=== PATIENT | female | born 1945 | race Caucasian/White ===

== ENCOUNTER 2016-02-20 03:40 | Emergency (ER) | payer MEDICARE, MEDICAID ==
[2016-02-20] MEDS ORDERED: SODIUM CHLORIDE 0.9% 3 ML FLUSH FLUSH PRN (03:42)
--- NOTE | 2016-02-20 03:47 | EDPRACDOC ---
- General Information Information Source: Patient - History of Present Illness Pain Location: Reports: Diffuse Pain Context: Reports: Spontaneous Pain Severity: Moderate Pain Quality: Reports: Aching Female Associated Signs & Symptoms: Reports: Nausea, Vomiting. Denies: Diarrhea , Fever Oral Intake: Normal <Jarrod Malik - Last Filed: 02/20/16 05:04> <Russell Beaulieu - Last Filed: 02/20/16 07:33> - General Information Stated Complaint: ABD PAIN Time Seen by Provider: 02/20/16 03:40 Home Medications: Home Medications Ondansetron [Zofran Odt] 4 mg PO Q6H PRN #10 tab.rapdis 02/20/16 Oxycodone HCl [Roxicodone] 5 mg PO Q4 PRN #10 tablet 02/20/16 Allergies/Adverse Reactions: Allergies Allergy/AdvReac Type Severity Reaction Status Date / Time ciprofloxacin Allergy Intermediate Hives* Verified 02/20/16 03:51 Penicillins Allergy Intermediate Hives* Verified 02/20/16 03:52 - History of Present Illness HPI: PT PRESENTS WITH DIFFUSE ABDOMINAL PAIN THAT BEGAN YESTERDAY. THERE IS ASSOCIATED NAUSEA AND VOMITING. (Jarrod Malik) ED Past Medical History - History Reviewed Yes Nurses notes reviewed and agree except as marked - Social Medical History Lives In: Home <Jarrod Malik - Last Filed: 02/20/16 05:04> EDM Review of Systems - Review of Systems ROS Negative Except as Marked: Yes All systems reviewed and were negative except as marked Constitutional: negative: Fever Respiratory: negative: Shortness of Breath Cardiovascular: negative: Chest Pain Gastrointestinal: Nausea, Pain, Vomiting. negative: Diarrhea Genitourinary: negative: Dysuria <Jarrod Malik - Last Filed: 02/20/16 05:04> - Physical Exam Constitutional: Alert Oriented to: Time, Person, Place - HEENT Head: negative: Deformity, Laceration Eye Exam: negative: Conjunctival Injection, Pale Conjunctiva Neck: negative: Limited ROM - Respiratory/Cardiovascular Respiratory: Normal - CTA. negative: Accessory Muscle Use, Diminished, Tachypnea Cardiovascular: negative: Bradycardia, Irregular - GI Auscultation: Increased Palpation: Tense Tenderness: Diffuse, Moderate, Guarding. negative: Rebound, Rigidity - Musculoskeletal Extremities: Radial Pulse (PALPABLE) - Integumentary Skin: Warm, Dry. negative: Rash - Neurologic Memory Impaired: Normal Motor Function: Normal Mood Description: Anxious, Appropriate Thought: Coherent Perception: Normal <Jarrod Malik - Last Filed: 02/20/16 05:04> - Results 02/20/16 04:00 02/20/16 04:00 - EKG EKG #1 EKG Time: 03:45 -: Yes EKG interpreted by me Rate: bpm: 83 [place]: Normal Rhythm: NSR Block: None Hypertrophy: None ST: Normal <Jarrod Malik - Last Filed: 02/20/16 05:04> - Results 02/20/16 04:00 02/20/16 04:00 <Russell Beaulieu - Last Filed: 02/20/16 07:33> - Results WBC 6.1 xk/uL (3.8-10.8) 02/20/16 04:00 RBC 3.00 xM/uL (4.20-5.40) L 02/20/16 04:00 Hgb 8.7 g/dL (12.0-16.0) L 02/20/16 04:00 Hct 26.5 % (36-47) L 02/20/16 04:00 MCV 89 fL (81-99) 02/20/16 04:00 MCH 29.1 pg (27-32) 02/20/16 04:00 MCHC 32.8 g/dl (33-36) L 02/20/16 04:00 RDW 14.2 % (11.5-14.5) 02/20/16 04:00 Plt Count 98 xk/uL (130-400) L 02/20/16 04:00 MPV 10.5 fL (7.4-10.4) H 02/20/16 04:00 Neut % (Auto) 75.2 % (45-76) 02/20/16 04:00 Lymph % (Auto) 15.0 % (17-44) L 02/20/16 04:00 [place] % (Auto) 7.7 % (3-10) 02/20/16 04:00 Eos % (Auto) 1.6 % (0-5) 02/20/16 04:00 Baso % (Auto) 0.5 % (0-2) 02/20/16 04:00 Absolute Neuts (auto) 4.58 xk/uL (1.7-8.2) 02/20/16 04:00 Absolute Lymphs (auto) 0.92 xk/uL (0.65-4.75) 02/20/16 04:00 PT 11.5 SEC (9.2-11.2) H 02/20/16 04:00 INR 1.1 02/20/16 04:00 APTT 24.7 SEC (22-35) 02/20/16 04:00 Sodium 133 mEq/L (137-146) L 02/20/16 04:00 Potassium 4.9 mEq/L (3.5-5.1) 02/20/16 04:00 Chloride 93 mEq/L (98-107) L 02/20/16 04:00 Carbon Dioxide 29 mMOL/L (22-33) 02/20/16 04:00 Anion Gap 16 mEq/L (8-16) 02/20/16 04:00 BUN 29 MG/DL (7-17) H 02/20/16 04:00 Creatinine 0.90 MG/DL (0.52-1.04) 02/20/16 04:00 Estimated GFR (MDRD) > 60 mL/min (>=60) 02/20/16 04:00 Glucose 277 MG/DL (70-99) H 02/20/16 04:00 Calculated Osmolality 272 MOs/Kg (270-290) 02/20/16 04:00 Lactic Acid 1.4 mEq/L (0.7-2.1) 02/20/16 05:50 Calcium 9.1 MG/DL (8.4-10.2) 02/20/16 04:00 Corrected Calcium 9.3 MG/DL (8.4-10.2) 02/20/16 04:00 Total Bilirubin 0.5 MG/DL (0.2-1.3) 02/20/16 04:00 AST 32 IU/L (14-36) 02/20/16 04:00 ALT 43 IU/L (9-52) 02/20/16 04:00 Alkaline Phosphatase 124 IU/L (55-165) 02/20/16 04:00 Troponin I < 0.01 ng/mL (<.04) 02/20/16 04:00 Total Protein 6.6 G/DL (6.3-8.2) 02/20/16 04:00 Albumin 3.8 G/DL (3.5-5.0) 02/20/16 04:00 Lipase 220 U/L (23-300) 02/20/16 04:00 Urine Color Yellow 02/20/16 06:00 Urine Clarity Clear 02/20/16 06:00 Urine pH 7.0 (5.0-8.0) 02/20/16 06:00 Ur Specific [place] 1.005 (1.003-1.035) 02/20/16 06:00 Urine Protein Neg (NEG/TRACE) 02/20/16 06:00 Urine Glucose (UA) 3+ (NEGATIVE) H 02/20/16 06:00 Urine Ketones Neg (NEGATIVE) 02/20/16 06:00 Urine Occult Blood Neg (NEG/TRACE) 02/20/16 06:00 Urine Nitrite Neg (NEGATIVE) 02/20/16 06:00 Urine Bilirubin Neg (NEGATIVE) 02/20/16 06:00 Urine Urobilinogen <2.0 MG/DL (0-1) 02/20/16 06:00 Ur Leukocyte Esterase Neg (NEGATIVE) 02/20/16 06:00 Urine RBC 0-2 (0-5) 02/20/16 06:00 Urine WBC 0-2 (0-5) 02/20/16 06:00 Ur Epithelial Cells Occ 02/20/16 06:00 Urine Bacteria Few (NEG/FEW) 02/20/16 06:00 Lab Results 02/20/16 02/20/16 02/20/16 06:00 05:50 04:00 WBC RBC Hgb Hct MCV MCH MCHC RDW Plt Count MPV Neut % (Auto) Lymph % (Auto) [place] % (Auto) Eos % (Auto) Baso % (Auto) Absolute Neuts (auto) Absolute Lymphs (auto) PT 11.5 H INR 1.1 APTT 24.7 Sodium Potassium Chloride Carbon Dioxide Anion Gap BUN Creatinine Estimated GFR (MDRD) Glucose Calculated Osmolality Lactic Acid 1.4 Calcium Corrected Calcium Total Bilirubin AST ALT Alkaline Phosphatase Troponin I Total Protein Albumin Lipase Urine Color Yellow Urine Clarity Clear Urine pH 7.0 Ur Specific [place] 1.005 Urine Protein Neg Urine Glucose (UA) 3+ H Urine Ketones Neg Urine Occult Blood Neg Urine Nitrite Neg Urine Bilirubin Neg Urine Urobilinogen <2.0 Ur Leukocyte Esterase Neg Urine RBC 0-2 Urine WBC 0-2 Ur Epithelial Cells Occ Urine Bacteria Few 02/20/16 02/20/16 02/20/16 04:00 04:00 04:00 WBC 6.1 RBC 3.00 L Hgb 8.7 L Hct 26.5 L MCV 89 MCH 29.1 MCHC 32.8 L RDW 14.2 Plt Count 98 L MPV 10.5 H Neut % (Auto) 75.2 Lymph % (Auto) 15.0 L [place] % (Auto) 7.7 Eos % (Auto) 1.6 Baso % (Auto) 0.5 Absolute Neuts (auto) 4.58 Absolute Lymphs (auto) 0.92 PT INR APTT Sodium 133 L Potassium 4.9 Chloride 93 L Carbon Dioxide 29 Anion Gap 16 BUN 29 H Creatinine 0.90 Estimated GFR (MDRD) > 60 Glucose 277 H Calculated Osmolality 272 Lactic Acid Calcium 9.1 Corrected Calcium 9.3 Total Bilirubin 0.5 AST 32 ALT 43 Alkaline Phosphatase 124 Troponin I < 0.01 Total Protein 6.6 Albumin 3.8 Lipase 220 Urine Color Urine Clarity Urine pH Ur Specific [place] Urine Protein Urine Glucose (UA) Urine Ketones Urine Occult Blood Urine Nitrite Urine Bilirubin Urine Urobilinogen Ur Leukocyte Esterase Urine RBC Urine WBC Ur Epithelial Cells Urine Bacteria (Russell Beaulieu) <Jarrod Malik - Last Filed: 02/20/16 05:04> Decision Time to Discharge: 07:32 - Departure Disposition: Home Education/Counseling Given To: Patient Education/Counseling Given Regarding: Diagnosis, Prognosis, Follow Up <Russell Beaulieu - Last Filed: 02/20/16 07:33> - Departure Condition: Stable Final Diagnosis: Abdominal pain, Celiac artery atherosclerosis, Splenomegaly Coronary artery disease Qualifiers: Coronary Disease-Associated Artery/Lesion type: [place] artery [place] vs. transplanted heart: [place] heart Associated angina: without angina Qualified Code(s): I25.10 - Atherosclerotic heart disease of [place] coronary artery without angina pectoris Hepatic cirrhosis Qualifiers: Hepatic cirrhosis type: unspecified hepatic cirrhosis Ascites presence: without ascites Qualified Code(s): K74.60 - Unspecified cirrhosis of liver Instructions: Abdominal Pain in Women Referrals: None,No Provider [Primary Care Provider] - 1-2 days Prescriptions: Ondansetron [Zofran Odt] 4 mg PO Q6H PRN #10 tab.rapdis PRN Reason: Nausea/Vomiting Oxycodone HCl [Roxicodone] 5 mg PO Q4 PRN #10 tablet PRN Reason: Pain
[2016-02-20 03:48] VITALS: BMI 29.0
[2016-02-20] MEDS ORDERED: Pharmacy Review for Metformin - IV Contrast Given SCH (04:00)
[2016-02-20 04:08] VITALS: TEMP 97.4
[2016-02-20] MEDS ORDERED: MORPHINE 4 MG/ML INJECTION IV ONE (04:09)
[2016-02-20 04:10] LABS: AUTOMATED BASOPHIL 0.5 % (0-2); AUTOMATED EOSINOPHIL 1.6 % (0-5); AUTOMATED MONOCYTE 7.7 % (3-10); AUTOMATED NEUTROPHIL 75.2 % (45-76); MPV 10.5 fL (7.4-10.4)
[2016-02-20] MEDS ORDERED: MORPHINE 2 MG/ML INJECTION ONE (04:11)
[2016-02-20 04:19] LABS: BLOOD UREA NITROGEN 29 MG/DL (7-17); CALC CORRECTED 9.3 MG/DL (8.4-10.2); CALCIUM 9.1 MG/DL (8.4-10.2); CALCULATED OSMOLALITY 272 MOs/Kg (270-290); CHLORIDE 93 mEq/L (98-107); GLUCOSE 277 MG/DL (70-99); SODIUM LEVEL 133 mEq/L (137-146); TOTAL PROTEIN 6.6 G/DL (6.3-8.2)
--- NOTE | 2016-02-20 05:29 | DIRPT ---
CLINICAL DATA: Acute onset of generalized abdominal pain, nausea and vomiting. Initial encounter. EXAM: CT ABDOMEN AND PELVIS WITH CONTRAST TECHNIQUE: Multidetector CT imaging of the abdomen and pelvis was performed using the standard protocol following bolus administration of intravenous contrast. CONTRAST: 100 mL of Isovue 370 IV contrast COMPARISON: None. FINDINGS: The visualized lung bases are clear. Diffuse coronary artery calcifications are seen. Calcification is noted at the mitral and aortic valves. There is a nodular contour to the liver, compatible with hepatic cirrhosis. The spleen is enlarged, measuring 15.1 cm in length. The patient is status post cholecystectomy. The pancreas and adrenal glands are unremarkable. Mild gastric varices are suggested. The kidneys are unremarkable in appearance. There is no evidence of hydronephrosis. No renal or ureteral stones are seen. No perinephric stranding is appreciated. No free fluid is identified. The small bowel is unremarkable in appearance. The stomach is within normal limits. No acute vascular abnormalities are seen. Diffuse calcification is noted along the abdominal aorta and its branches. There is a common trunk to the celiac axis and superior mesenteric artery, which demonstrates diffuse calcification. The patient is status post appendectomy. Mild diverticulosis is noted along the proximal sigmoid colon, without evidence of diverticulitis. The bladder is moderately distended and grossly unremarkable. The uterus is grossly unremarkable in appearance. A 3.5 cm right adnexal cystic focus is noted. The ovaries are otherwise unremarkable. No inguinal lymphadenopathy is seen. No acute osseous abnormalities are identified. There is chronic compression deformity involving vertebral body T12. IMPRESSION: 1. No definite acute abnormality seen to explain the patient's symptoms. 2. Common trunk to the celiac axis and superior mesenteric artery, which demonstrates diffuse calcification. Would correlate for any evidence of intermittent mesenteric ischemia, and consider further evaluation as deemed clinically appropriate. No CT findings to suggest bowel ischemia at this time. 3. Findings of hepatic cirrhosis. 4. Splenomegaly noted. 5. Mild gastric varices suggested. 6. Diffuse coronary artery calcifications seen. Calcification at the mitral and aortic valves. 7. Diffuse calcification along the abdominal aorta and its branches. 8. Mild diverticulosis along the proximal sigmoid colon, without evidence of diverticulitis. 9. 3.5 cm right adnexal cystic focus is likely physiologic, though pelvic ultrasound could be considered for further evaluation if deemed clinically appropriate. 10. Chronic compression deformity at vertebral body T12. Electronically Signed By: Darius Fischer M.D. On: 02/20/2016 05:27
[2016-02-20] MEDS ORDERED: SODIUM CHLORIDE 0.9% 3 ML FLUSH FLUSH SCH (06:00)
[2016-02-20] MEDS ORDERED: NS 1,000 ML IV ONE (06:17)
[2016-02-20 06:21] VITALS: BP 164/63; PULSE 72
[2016-02-20 06:21] LABS: LEUKOCYTES/URINE NEG (NEGATIVE); NITRITE/URINE NEG (NEGATIVE); RBC/URINE 0-2 (0-5); URINE OCCULT BLOOD NEG (NEG/TRACE); WBC/URINE 0-2 (0-5)
[2016-02-20 06:58] LABS: PARTIAL THROMB. TIME 24.7 SEC (22-35); PT-INR 1.1
== END 2016-02-20 07:45 | disposition home or self-care (01) ==
LOC: ED 03:40
DX: R10.84 Generalized abdominal pain (principal); I70.8 Atherosclerosis of other arteries; R16.1 Splenomegaly, not elsewhere classified; I25.10 Atherosclerotic heart disease of native coronary artery without angina pectoris; K74.60 Unspecified cirrhosis of liver
CPT/HCPCS: 36415; 74177; 80053; 81001; 83605; 83690; 84484; 85025; 85610; 85730; 96374; 99284; A9698; J2270